=== PATIENT | male | born 1950 | race Caucasian/White ===

== ENCOUNTER 2019-04-14 07:28 | Day surgery (SDC) | payer MEDICARE ==
[2019-04-09 13:37] LABS: BASOPHILS # (AUTO) 0.1 X10'3 (0-0.2); BASOPHILS % (AUTO) 0.5 % (0-1); EOSINOPHILS # (AUTO) 0.2 X10'3 (0-0.9); LYMPHOCYTES # (AUTO) 2.2 X10'3 (1.1-4.8); LYMPHOCYTES % (AUTO) 18.2 % (21-51); MEAN CORPUSCULAR HEMOGLOBIN 30.2 PG (27.0-31.0); MEAN CORPUSCULAR HGB CONC 32.9 g/dL (33.0-36.5); MEAN CORPUSCULAR VOLUME 91.8 FL (78-98); MEAN PLATELET VOLUME 7.4 FL (7.4-10.4); MONOCYTES # (AUTO) 1.3 X10'3 (0-0.9); MONOCYTES % (AUTO) 10.5 % (2-12); NEUTROPHILS # (AUTO) 8.4 X10'3 (1.8-7.7); NEUTROPHILS % (AUTO) 68.8 % (42-75); PRE OP HEMATOCRIT 38.5 % (42.0-52.0); PRE OP HEMOGLOBIN 12.7 g/dL (14.0-17.9); PRE OP PLATELET COUNT 281 X10'3 (140-440); RED CELL DISTRIBUTION WIDTH 16.3 % (11.5-14.5)
[2019-04-09 13:40] LABS: CLARITY,URINE CLOUDY (Clear); COLOR,URINE STRAW (Yellow); GLUCOSE, URINE NEGATIVE (Neg); KETONES,URINE NEGATIVE (Neg); LEUKOCYTE ESTERASE ,URINE LARGE (Neg); NITRITES, URINE NEGATIVE (Neg); OCCULT BLOOD,URINE SMALL (Neg); PROTEIN,URINE 100 mg/dl (Neg); UROBILINOGEN,URINE 0.2 E.U/dL (0.2-1.0)
[2019-04-09 13:41] LABS: UA COLLECTION TYPE CLN CATCH MIDSTREAM
[2019-04-09 13:49] LABS: PRE OP PROTIME 10.1 SECONDS (9.0-12.0)
[2019-04-09 13:49] LABS: BACTERIA,URINE 1+ /HPF (Neg); MUCUS STRANDS NONE SEEN /LPF (Neg); SQUAMOUS EPITHELIAL CELL,UR NONE SEEN /LPF (FEW); WBC,URINE TNTC /HPF (0-4)
[2019-04-09 13:50] LABS: WBC CLUMPS,URINE MODERATE /HPF (NEGATIVE)
[2019-04-09 13:52] LABS: ALBUMIN 3.5 G/DL (3.4-5.0); ALBUMIN/GLOBULIN RATIO 0.8 (1.1-1.5); ALKALINE PHOSPHATASE 113 IU/L (46-116); BLOOD UREA NITROGEN 29 MG/DL (7-18); BUN/CREATININE RATIO 19.3 (5.4-32.0); CALCIUM 9.6 MG/DL (8.5-10.1); CHLORIDE 104 MMOL/L (99-107); PRE OP ALT 29 U/L (30-65); PRE OP ANION GAP 8 (8-16); PRE OP AST 19 U/L (10-37); PRE OP BILIRUB, TOTAL 0.4 MG/DL (0.0-1.0); PRE OP GLUCOSE 122 MG/DL (70-104); PRE OP POTASSIUM 4.2 MMOL/L (3.4-5.1); PRE OP SODIUM 140 MMOL/L (135-145); TOTAL PROTEIN 7.7 G/DL (6.4-8.2); eGFR 46 ML/MIN
[~2019-04-14] VITALS: Ht 188 cm; Wt 83.0 kg
[2019-04-14] VITALS (8 sets, daily range): BP systolic 129–147; BP diastolic 71–84
[~2019-04-14 07:28] MED LIST: ALBU18HF2 INH; AMLO5TAB16 PO; ATOR-2 PO; BENA20TA10 PO; BENA40TA73 PO; CALC-1051 PO; DOLU50TA PO; EMTR1TAB18 PO; FLUT1BLS4 INH; TRAM50TA2 PO; TRAZ-251 PO; VARE1TAB22 PO; cefazolin/dext.iso 2gm/100ml 100 ML IV ONE; famotidine 10mg tablet PO ONE; ringers solution, lacted 1,000 ML IV SCH
[2019-04-14] MEDS ORDERED: albuterol 2.5 MG/3 ML nebule NEB ONE (08:30)
[2019-04-14] MEDS ORDERED: ringers solution, lacted 1,000 ML IV SCH (09:46)
[2019-04-14] MEDS ORDERED: meperidine/PF 25mg/ml syringe IV PRN ×3 (09:50)
[2019-04-14] MEDS ORDERED: proCHLORperazine 10 MG/2 ml inj IV PRN (09:50)
[2019-04-14] MEDS ORDERED: ondansetron/PF 4mg/2ml inj IV PRN (09:50)
[2019-04-14] MEDS ORDERED: morphine 4 MG/ML inj SYRINge IV PRN ×2 (09:50)
[2019-04-14] MEDS ORDERED: ceFAZolin 1000mg inj ONE (10:06)
[2019-04-14] MEDS ORDERED: BUPIVAcaine/PF 2.5 mg/ml (0.25%) 30ml vial ONE (10:06)
[2019-04-14] MEDS ORDERED: ondansetron/PF 4mg/2ml inj ONE (13:12)
[2019-04-14] MEDS ORDERED: sevoflurane 250ml liquid IH ONE (13:12)
[2019-04-14] MEDS ORDERED: fentaNYL/PF 50MCG/1 ML 2ML syringe ONE ×2 (13:22→14:01)
[2019-04-14] MEDS ORDERED: midazolam 2 mg/2 ml injection ONE (13:22)
[2019-04-14] MEDS ORDERED: propofol inj 20 ML IV ONE (13:23)
[2019-04-14] MEDS ORDERED: LIDOcaine 2% (20mg/ml) 5ml vial ONE (13:23)
[2019-04-14] MEDS ORDERED: rocuronium 10mg/ml inj IV ONE (14:00)
[2019-04-14] MEDS ORDERED: dexamethasone sod phosphate 4mg/ml inj. ONE (14:00)
[2019-04-14] MEDS ORDERED: neostigmine methylsulfate 1 MG/ML 10ml vial ONE (14:20)
[2019-04-14] MEDS ORDERED: glycopyrrolate 0.2mg/ml inj ONE (14:21)
--- NOTE | 2019-04-14 14:35 | NUR ---
Received from OR via BED , accompanied by Anesthesiologist DR LEE and report given by Anesthesiolgist. PATIENT WAKING UP, DENIES PAIN, V/S WNL, NEUROVASCULAR CHECKS INTACT, 20G PIV LUE, SCD ON, ABDOMEN LAP SITES CDI WITH BANDAIDS, SCROTAL EDEMA DR HATHAWAY IS AWARE. NO NEW ORDERS. F/C DRAINING YELLOW CLOUDY URINE. MD AWARE. NO NEW ORDERS
--- NOTE | 2019-04-14 15:35 | NUR ---
PATIENT A&OX4, DENIES PAIN, V/S WNL, NEUROVASCULAR CHECKS INTACT, 20G PIV LUE D/C, SCD OFF, ABDOMEN LAP SITES CDI WITH BANDAIDS, SCROTAL EDEMA DR HATHAWAY IS AWARE. NO NEW ORDERS. F/C DRAINING YELLOW CLOUDY URINE. MD AWARE. NO NEW ORDERS. PATIENT HAS BEEN INSTRUCTED ON F/C CARE AND DRAINAGE, .. I HAVE REVIEWED D/C INSTRUCTIONS WITH PATIENT AND FAMILY HAVE VERBALIZED UNDERSTANDING.PATIENT WAS D/C HOME WITH ALL BELONGINGS AND FAMILY GAVE TRANSPORT HOME.
== END 2019-04-14 15:35 | disposition home or self-care (01) ==
LOC: PAS 07:28
PROVIDERS: ATTEND Surgery
DX: K40.20 Bilateral inguinal hernia, without obstruction or gangrene, not specified as recurrent (principal); E11.22 Type 2 diabetes mellitus with diabetic chronic kidney disease; I12.9 Hypertensive chronic kidney disease with stage 1 through stage 4 chronic kidney disease, or unspecified chronic kidney disease; N18.9 Chronic kidney disease, unspecified; J44.9 Chronic obstructive pulmonary disease, unspecified; F17.210 Nicotine dependence, cigarettes, uncomplicated; F12.90 Cannabis use, unspecified, uncomplicated; Z72.89 Other problems related to lifestyle; Z98.890 Other specified postprocedural states; Z79.899 Other long term (current) drug therapy
CPT/HCPCS: 36415; 49650; 80053; 81001; 82948; 85025; 85610; 85730; 87077; 87088; 87186; 93005; 94640; C1781; J0690; J1100; J2001; J2250; J2405; J2704; J2710; J3010; J3490; J7120; A4215; A4314; A4618; A6258

== ENCOUNTER 2023-02-03 08:23 | Emergency (ER) | payer MEDICARE ==
[~2023-02-03] VITALS: Ht 188 cm; Wt 73.0 kg
[~2023-02-03 08:23] MED LIST changes: -BENA20TA10 PO; +BENA20TA83 PO; -cefazolin/dext.iso 2gm/100ml 100 ML IV ONE; -famotidine 10mg tablet PO ONE; -ringers solution, lacted 1,000 ML IV SCH
[2023-02-03] MEDS ORDERED: normal saline 1000ML IV soln IVB ONE (09:45)
[2023-02-03] MEDS ORDERED: glucagon, human recombinant 1mg kit IV ONE (09:45)
[2023-02-03] MEDS ORDERED: ondansetron/PF 4mg/2ml inj IV ONE (09:45)
[2023-02-03] MEDS ORDERED: pantoprazole 40 MG vial IV ONE (09:45)
[2023-02-03 10:24] LABS: BASOPHILS # (AUTO) 0.1 X10'3 (0-0.2); BASOPHILS % (AUTO) 0.6 % (0-1); EOSINOPHILS % (AUTO) 0.2 % (0-6); HEMATOCRIT 39.2 % (42.0-52.0); HEMOGLOBIN 12.9 g/dl (14.0-17.9); LYMPHOCYTES % (AUTO) 8.2 % (21-51); MEAN CORPUSCULAR HEMOGLOBIN 33.8 PG (27.0-31.0); MEAN CORPUSCULAR HGB CONC 32.9 g/dL (33.0-36.5); MEAN CORPUSCULAR VOLUME 102.6 FL (78-98); MEAN PLATELET VOLUME 8.2 FL (7.4-10.4); MONOCYTES # (AUTO) 0.9 X10'3 (0-0.9); MONOCYTES % (AUTO) 7.2 % (2-12); NEUTROPHILS # (AUTO) 10.6 X10'3 (1.8-7.7); NEUTROPHILS % (AUTO) 83.8 % (42-75); PLATELET COUNT 242 X10'3 (140-440); RED BLOOD COUNT 3.82 X10'6 (4.70-6.10); RED CELL DISTRIBUTION WIDTH 15.4 % (11.5-14.5); WHITE BLOOD COUNT 12.7 X10'3 (4.5-11.0)
[2023-02-03 10:40] LABS: ALANINE AMINOTRANSFERASE 20 U/L (12-78); ALBUMIN 3.7 G/DL (3.4-5.0); ALBUMIN/GLOBULIN RATIO 0.9 (1.1-1.5); ALKALINE PHOSPHATASE 167 IU/L (46-116); ANION GAP 15 (8-16); ASPARTATE AMINO TRANSFERASE 26 U/L (10-37); BILIRUBIN,TOTAL 0.5 MG/DL (0.1-1.0); BLOOD UREA NITROGEN 37 MG/DL (7-18); BUN/CREATININE RATIO 19.4 (10.0-20.0); CALCIUM 9.6 MG/DL (8.5-10.1); CHLORIDE 106 MMOL/L (99-107); CREATININE 1.91 MG/DL (0.60-1.10); GLUCOSE 103 MG/DL (70-104); POTASSIUM 4.1 MMOL/L (3.5-5.1); SODIUM 141 MMOL/L (135-145); TOTAL CARBON DIOXIDE 20.5 MMOL/L (24-32); TOTAL PROTEIN 7.7 G/DL (6.4-8.2); eCRCL 36 ML/MIN; eGFR 35 ML/MIN
[2023-02-03 10:44] LABS: APTT 29 SECONDS (22-32); PROTHROMBIN TIME 10.6 SECONDS (9.0-12.0)
[2023-02-03 11:57] VITALS: BP 140/70; PULSE 95; RESP 18
[2023-02-03] MEDS ORDERED: LIDOcaine Viscous 15ml cup ONE (11:58)
[2023-02-03] MEDS ORDERED: MIDAZolam 1 MG/ML 5ML VIAL ONE (11:59)
[2023-02-03] MEDS ORDERED: fentaNYL/PF 50MCG/1 ML 2ML syringe ONE (11:59)
[2023-02-03 12:28] VITALS: BP 131/65; PULSE 91; RESP 16; O2SAT 92
[2023-02-03 12:38] VITALS: BP 119/50; PULSE 90; RESP 17; O2SAT 97
[2023-02-03 12:48] VITALS: BP 106/45; PULSE 90; RESP 18; O2SAT 98
[2023-02-03 12:58] VITALS: BP 122/53; PULSE 90; RESP 18; O2SAT 96
[2023-02-03 14:55] VITALS: BP 162/78; PULSE 85; RESP 18; TEMP 97.7; O2SAT 96
== END 2023-02-03 15:05 | disposition home or self-care (01) ==
LOC: ER 08:23
DX: T18.128A Food in esophagus causing other injury, initial encounter (principal); E78.00 Pure hypercholesterolemia, unspecified; I10 Essential (primary) hypertension; J44.9 Chronic obstructive pulmonary disease, unspecified; R79.1 Abnormal coagulation profile; Z79.899 Other long term (current) drug therapy; W44.F3XA Food entering into or through a natural orifice, initial encounter; Y93.89 Activity, other specified; Y92.89 Other specified places as the place of occurrence of the external cause; Y99.8 Other external cause status
CPT/HCPCS: 36415; 43247; 71045; 80053; 85025; 85610; 85730; 96361; 96374; 96375; 99152; 99153; 99285; C9113; J1610; J2250; J2405; J3010; J7030; Z7512; A4620; C1889